=== PATIENT | female | born 1960 | race Caucasian/White ===

== ENCOUNTER 2018-01-05 15:52 | Emergency (ER) | payer BC ==
[2018-01-05 16:00] VITALS: BMI 29.0
[2018-01-05 16:04] VITALS: RESP 18; TEMP 98.1
[2018-01-05] MEDS ORDERED: Aspirin 325 mg EC Tablets PO STA (16:26)
--- NOTE | 2018-01-05 16:46 | RAD ---
Date of service: 01/05/2018 PROCEDURE: CHEST RADIOGRAPH, 1 VIEW HISTORY: chest pain COMPARISON: 12/21/2013 FINDINGS: LUNGS: Clear. PLEURA: No pneumothorax or pleural fluid seen. CARDIOVASCULAR: Normal. OSSEOUS STRUCTURES: No significant abnormalities. VISUALIZED UPPER ABDOMEN: Normal. OTHER FINDINGS: None. IMPRESSION: No active disease.
[2018-01-05] MEDS ORDERED: Aspirin 325 mg EC Tablets PO ONE (16:52)
[2018-01-05 16:55] LABS: BASO # 0.1 K/uL (0.0-0.2); BASO % 0.8 % (0.0-2.0); EOS # 0.1 K/uL (0.0-0.7); EOS % 1.7 % (0.0-4.0); HEMOGLOBIN 13.3 g/dL (11.0-16.0); LYMPH # 2.7 K/uL (1.0-4.3); MEAN CELL VOLUME 87.5 fL (81.0-99.0); MEAN CORPUSCULAR HEMOGLOBIN 30.5 pg (27.0-31.0); MEAN CORPUSCULAR HGB CONC 34.8 g/dL (33.0-37.0); MEAN PLATELET VOLUME 8.1 fL (7.2-11.7); MONO # 0.4 K/uL (0.0-0.8); MONO % 5.6 % (0.0-10.0); NEUT # 4.5 K/uL (1.8-7.0); NEUT % 57.9 % (50.0-75.0); NRBC % 0.1 % (0.0-2.0); RBC 4.36 Mil/uL (3.80-5.20); RED CELL DISTRIBUTION WIDTH 13.2 % (11.5-14.5); WHITE BLOOD COUNT 7.8 K/uL (4.8-10.8)
[2018-01-05 17:21] LABS: B-TYPE NATRIURETIC PEPTIDE 25.9 pg/mL (0-900)
[2018-01-05 17:28] LABS: ALBUMIN 4.6 g/dL (3.5-5.0); BLOOD UREA NITROGEN 14 mg/dL (7-17); CALCIUM 9.5 mg/dl (8.6-10.4); GFR AFRICAN-AMERICAN > 60; GFR NON-AFRICAN AMERICAN > 60
[2018-01-05 17:29] LABS: ALB/GLOB RATIO 1.4 (1.0-2.1); ALT/SGPT 35 U/L (9-52); AST/SGOT 20 U/L (14-36)
--- NOTE | 2018-01-05 18:17 | C.PDOC ---
History Of Present Illness 57yo female, comes to ER with complaint of a sharp substernal chest pain, intermittently present for the past 2-3 days. Patient states she has a history of anxiety and GERD. She currently denies any pain, shortness of breath, fever, or cough. Time Seen by Provider: 01/05/18 16:20 Chief Complaint (Nursing): Chest Pain History Per: Patient History/Exam Limitations: no limitations Onset/Duration Of Symptoms: Persistent Current Symptoms Are (Timing): Gone Quality: "Pain" Associated Symptoms: denies: Nausea, Dyspnea, Syncope Past Medical History Reviewed: Historical Data, Nursing Documentation, Vital Signs Vital Signs: Last Vital Signs Temp 98.1 F 01/05/18 16:00 Pulse 77 01/05/18 18:22 Resp 18 01/05/18 18:22 BP 140/60 01/05/18 18:22 Pulse Ox 100 01/05/18 18:22 - Medical History PMH: Anxiety, Diabetes Surgical History: No Surg Hx Family History: States: No Known Family Hx - Social History Hx Tobacco Use: No Hx Alcohol Use: Yes Hx Substance Use: No - Immunization History Hx Tetanus Toxoid Vaccination: No Hx Influenza Vaccination: No Hx Pneumococcal Vaccination: No Review Of Systems Except As Marked, All Systems Reviewed And Found Negative. Constitutional: Negative for: Fever, Chills Cardiovascular: Positive for: Chest Pain (none right now) Respiratory: Negative for: Cough, Shortness of Breath Physical Exam - Physical Exam Appears: Non-toxic, No Acute Distress Skin: Normal Color, Warm, Dry Head: Atraumatic, Normacephalic Eye(s): bilateral: Normal Inspection Neck: Normal ROM, Supple Chest: Symmetrical, No Deformity, No Tenderness Cardiovascular: Rhythm Regular Respiratory: Normal Breath Sounds Gastrointestinal/Abdominal: Soft, No Tenderness Back: Normal Inspection Extremity: Normal ROM, No Pedal Edema Neurological/Psych: Oriented x3 ED Course And Treatment - Laboratory Results Result Diagrams: 01/05/18 16:51 01/05/18 16:51 ECG: Interpreted By Me, Viewed By Me ECG Rhythm: Sinus Tachycardia Rate From EC O2 Sat by Pulse Oximetry: 98 (RA) Pulse Ox Interpretation: Normal Medical Decision Making Medical Decision Making: Plan: -- Labs -- EKG -- CXR -- Aspirin 325mg PO 1800 Labs reviewed and are within normal limits. CXR with no acute findings. Patient stable for discharge home; instructed to follow up with PMD in 2-3 days. Disposition - Disposition Referrals: Braden Donato, [Non-Staff] - Disposition: HOME/ ROUTINE Disposition Time: 17:45 Condition: GOOD Additional Instructions: JONI ALMONTE, thank you for letting us take care of you today. The emergency medical care you received today was directed at your acute symptoms. If you were prescribed any medication, please fill it and take as directed. It may take several days for your symptoms to resolve. Return to the Emergency Department if your symptoms worsen, do not improve, or if you have any other problems. Please contact your doctor or call one of the physicians/clinics you have been referred to that are listed on the Patient Visit Information form that is included in your discharge packet. Bring any paperwork you were given at discharge with you along with any medications you are taking to your follow up visit. Our treatment cannot replace ongoing medical care by a primary care provider outside of the emergency department. Thank you for allowing the [email or web address] team to be part of your care today. Follow up with your primary care doctor in 2-3 days for re-evaluation and further management. Instructions: Chest Pain That Is Not Caused by the Heart (DC) Forms: dVisit (Malay) - Clinical Impression Clinical Impression: Non-cardiac chest pain - Scribe Statement The provider has reviewed the documentation as recorded by the Doretha Ornelas Provider Attestation: All medical record entries made by the Doretha were at my direction and personally dictated by me. I have reviewed the chart and agree that the record accurately reflects my personal performance of the history, physical exam, medical decision making, and the department course for this patient. I have also personally directed, reviewed, and agree with the discharge instructions and disposition.
[2018-01-05 18:24] VITALS: BP 140/60; PULSE 77
[2018-01-06 00:43] VITALS: O2SAT 98
== END 2018-01-05 18:22 | disposition home or self-care (01) ==
LOC: C.ER 15:52
DX: R07.89 Other chest pain (principal); E11.9 Type 2 diabetes mellitus without complications

== ENCOUNTER 2018-06-22 10:05 | Emergency (ER) | payer BC ==
[2018-06-22 10:05] VITALS: BMI 29.0
[2018-06-22 10:12] VITALS: RESP 18
[2018-06-22] MEDS ORDERED: Sodium Chloride 0.9% 1,000 ML IV STA (10:34)
[2018-06-22] MEDS ORDERED: Sodium Chloride 0.9% 1,000 ML ONE (11:02)
[2018-06-22 11:03] LABS: BASO % 0.8 % (0.0-2.0); EOS # 0.1 K/uL (0.0-0.7); EOS % 1.3 % (0.0-4.0); HEMOGLOBIN 12.3 g/dL (11.0-16.0); LYMPH # 1.3 K/uL (1.0-4.3); LYMPH % 23.1 % (20.0-40.0); MEAN CORPUSCULAR HEMOGLOBIN 29.6 pg (27.0-31.0); MEAN CORPUSCULAR HGB CONC 32.8 g/dL (33.0-37.0); MEAN PLATELET VOLUME 8.5 fL (7.2-11.7); MONO # 0.3 K/uL (0.0-0.8); MONO % 4.8 % (0.0-10.0); RBC 4.17 Mil/uL (3.80-5.20); RED CELL DISTRIBUTION WIDTH 12.9 % (11.5-14.5); WHITE BLOOD COUNT 5.7 K/uL (4.8-10.8)
[2018-06-22 11:06] LABS: MEAN CELL VOLUME 90.4 fL (81.0-99.0)
[2018-06-22 11:10] LABS: PROTHROMBIN TIME 10.6 SECONDS (9.7-12.2)
[2018-06-22 11:11] LABS: URINE BILIRUBIN NEGATIVE (NEGATIVE); URINE BLOOD NEGATIVE (NEGATIVE); URINE CLARITY Clear (Clear); URINE COLOR Straw (YELLOW); URINE GLUCOSE (UA) NORMAL (Normal); URINE LEUKOCYTE ESTERASE NEG Leu/uL (Negative); URINE PROTEIN NEGATIVE (NEGATIVE); URINE UROBILINOGEN NORMAL mg/dL (0.2-1.0)
[2018-06-22 11:16] LABS: ALB/GLOB RATIO 1.4 (1.0-2.1); ALBUMIN 4.4 g/dL (3.5-5.0); ALT/SGPT 34 U/L (9-52); AMYLASE 124 U/L (30-110); AST/SGOT 28 U/L (14-36); BLOOD UREA NITROGEN 14 mg/dL (7-17); CALCIUM 8.8 mg/dl (8.6-10.4); GFR NON-AFRICAN AMERICAN > 60; LIPASE 260 U/L (23-300)
--- NOTE | 2018-06-22 11:34 | RAD ---
Date of service: 06/22/2018 HISTORY: SOB, abd pain COMPARISON: Portable chest 01/05/2018. TECHNIQUE: Chest PA and lateral FINDINGS: LUNGS: No active pulmonary disease. PLEURA: No significant pleural effusion identified. No pneumothorax apparent. CARDIOVASCULAR: No aortic atherosclerotic calcification present. Normal cardiac size. No pulmonary vascular congestion. OSSEOUS STRUCTURES: No significant abnormalities. VISUALIZED UPPER ABDOMEN: Normal. OTHER FINDINGS: None. IMPRESSION: No interval acute cardiopulmonary disease appreciated.
--- NOTE | 2018-06-22 11:47 | C.PDOC ---
History Of Present Illness 58 y/o female presents to the ED for evaluation of abdominal pain that began this morning. Patient states she was going to work when she suddenly felt out of oxygen. While at work, patient developed cramping to the lower abdomen as sociated with non-bloody diarrhea. No vomiting. She denies any sharp pain or SOB at present time. Patient has no prior hx of COPD or asthma. Time Seen by Provider: 06/22/18 10:19 Chief Complaint (Nursing): Abdominal Pain History Per: Patient History/Exam Limitations: no limitations Onset/Duration Of Symptoms: Hrs Current Symptoms Are (Timing): Still Present Past Medical History Reviewed: Historical Data, Nursing Documentation, Vital Signs Vital Signs: Last Vital Signs Temp 98.1 F 06/22/18 10:08 Pulse 90 06/22/18 10:08 Resp 18 06/22/18 10:08 BP 143/90 06/22/18 10:08 Pulse Ox 98 06/22/18 10:08 - Medical History PMH: Anxiety, Diabetes Family History: States: Unknown Family Hx - Social History Hx Tobacco Use: No Hx Alcohol Use: No Hx Substance Use: No - Immunization History Hx Tetanus Toxoid Vaccination: No Hx Influenza Vaccination: No Hx Pneumococcal Vaccination: No Review Of Systems Except As Marked, All Systems Reviewed And Found Negative. Constitutional: Negative for: Fever, Chills Eyes: Negative for: Vision Change Cardiovascular: Negative for: Chest Pain, Light Headedness Respiratory: Negative for: Shortness of Breath Gastrointestinal: Positive for: Abdominal Pain, Diarrhea. Negative for: Vomiting, Melena, Hematochezia Genitourinary: Negative for: Dysuria, Frequency Neurological: Negative for: Weakness, Dizziness Physical Exam - Physical Exam Appears: Non-toxic, No Acute Distress Skin: Warm, Dry Head: Atraumatic, Normacephalic Eye(s): bilateral: Normal Inspection, PERRL, EOMI Neck: Normal ROM Chest: Symmetrical Cardiovascular: Rhythm Regular, No Murmur Respiratory: Normal Breath Sounds, No Accessory Muscle Use Gastrointestinal/Abdominal: Soft, Tenderness (suprapubic), No Guarding, No R ebound Back: Normal Inspection Extremity: Bilateral: Atraumatic, Normal Color And Temperature Pulses: Left Dorsalis Pedis: Normal, Right Dorsalis Pedis: Normal Neurological/Psych: Oriented x3 ED Course And Treatment - Laboratory Results Result Diagrams: 06/22/18 10:55 06/22/18 10:55 Lab Results: PT 10.6 SECONDS (9.7-12.2) 06/22/18 10:55 INR 1.0 06/22/18 10:55 APTT 29 SECONDS (21-34) 06/22/18 10:55 Troponin I < 0.0120 ng/mL (0.00-0.120) 06/22/18 10:55 Total Bilirubin 0.5 mg/dL (0.2-1.3) 06/22/18 10:55 AST 28 U/L (14-36) 06/22/18 10:55 ALT 34 U/L (9-52) 06/22/18 10:55 Alkaline Phosphatase 107 U/L (38-126) 06/22/18 10:55 Total Protein 7.5 g/dL (6.3-8.3) 06/22/18 10:55 Albumin 4.4 g/dL (3.5-5.0) 06/22/18 10:55 Globulin 3.1 gm/dL (2.2-3.9) 06/22/18 10:55 Albumin/Globulin Ratio 1.4 (1.0-2.1) 06/22/18 10:55 Amylase 124 U/L (30-110) H 06/22/18 10:55 Lipase 260 U/L (23-300) 06/22/18 10:55 Urine Color Straw (YELLOW) 06/22/18 10:55 Urine Clarity Clear (Clear) 06/22/18 10:55 Urine pH 6.0 (5.0-8.0) 06/22/18 10:55 Ur Specific Valentine 1.005 (1.003-1.030) 06/22/18 10:55 Urine Protein Negative mg/dL (NEGATIVE) 06/22/18 10:55 Urine Glucose (UA) Normal mg/dL (Normal) 06/22/18 10:55 Urine Ketones Negative mg/dL (NEGATIVE) 06/22/18 10:55 Urine Blood Negative (NEGATIVE) 06/22/18 10:55 Urine Nitrate Negative (NEGATIVE) 06/22/18 10:55 Urine Bilirubin Negative (NEGATIVE) 06/22/18 10:55 Urine Urobilinogen Normal mg/dL (0.2-1.0) 06/22/18 10:55 Ur Leukocyte Esterase Neg Rica/uL (Negative) 06/22/18 10:55 O2 Sat by Pulse Oximetry: 98 (RA) Pulse Ox Interpretation: Normal - Other Rad CXR X-Ray: Viewed By Me, Read By Radiologist Interpretation: Accession No. : [id number]. Patient Name / ID : SUZY QUINONES / [id number]. Exam Date : 06/22/2018 10:39:28 ( Approved ). Study Co mment : Sex / Age : F / 58Y. Creator : Rob Sylvester MD. Dictator : Rob Sylvester MD. Wild Life Manager : Medical Lab Tech Instructor : Rob Sylvester MD. Approver2 : Report Date : 06/22/2018 11:30:38. My Comment : . Date of service: 06/22/2018. HISTORY: SOB, abd pain. COMPARISON: Portable chest 01/05/2018. TECHNIQUE: Chest PA and lateral. FINDINGS: LUNGS: No active pulmonary disease. PLEURA: No significant pleural effusion identified. No pneumothorax apparent. CARDIOVASCULAR: No aortic athe rosclerotic calcification present. Normal cardiac size. No pulmonary vascular congestion. OSSEOUS STRUCTURES: No significant abnormalities. VISUALIZED UPPER ABDOMEN: Normal. OTHER FINDINGS: None. IMPRESSION: No interval acute cardiopulmonary disease appreciated. - CT Scan/US Abdomen/pelvis Other Rad Studies (CT/US): Read By Radiologist, Radiology Report Reviewed CT/US Interpretation: Accession No. : [id number]. Patient Name / ID : SUZY QUINONES / [id number]. Exam Date : 06/22/2018 15:52:50 ( Approved ). Study Comment : Sex / Age : F / 58Y. Creator : Dulce Valdivia. Dictator : Joselito Zelaya MD. Wild Life Manager : Medical Lab Tech Instructor : Joselito Zelaya MD. Approver2 : Report Date : 06/22/2018 16:53:20. My Comment : . Date of service: 06/22/2018. PROCEDURE: CT Abdomen and Pelvis with contrast. HISTORY: Unspecified, generalized abdominal pain. COMPARISON: None. TECHNIQUE: Intravenous contrast dose: 100 cc Visipaque 320. Radiation dose: Total exam DLP = 953.86 mGy-cm. This CT exam was performed using one or more of the following dose reduction techniques: Automated exposure control, adjustment of the mA and/or kV according to patient size, and/or use of iterative reconstruction technique. FINDINGS: LOWER THORAX: Unremarkable. LIVER: Hepatic steatosis. No focal masses. No intrahepatic bile duct dilatation or perihepatic ascites. GALLBLADDER AND BILE DUCTS: Unremarkable. PANCREAS: Unremarkable. No gross lesion or ductal dilatation. SPLEEN: Unremarkable. ADRENALS: Unremarkable. No mass. KIDNEYS AND URETERS: Areas of cortical thinning bilaterally the overall appearance and geographic distribution suggest areas of scarring perhaps related to pyelonephritis.. No hydr onephrosis. No solid mass. VASCULATURE: Atherosclerotic calcification and mural plaque present. Findings are seen throughout the aorta. BOWEL: Edematous changes within the proximal small bowel consistent with jejunitis. Thickening of the wall of the distal descending colon and sigmoid without an acute inflammatory component. APPENDIX: A normal appendix is visualized in it's entirety. PERITONEUM: Unremarkable. No free fluid. No free air. LYMPH NODES: Unremarkable. No enlarged lymph nodes. BLADDER: Unremarkable. REPRODUCTIVE: Anteverted uterus containing at least 1 dominant fibroid. BONES: No acute fracture. OTHER FINDINGS: None. IMPRESSION: Findings consistent with enteritis/jejunitis. No mechanical obstructing lesions. Additional benign and/or incidental findings described above Progress Note: Blood work and urine sent to the lab. EKG and CXR ordered and reviewed. NS IV fluids x 1 bolus administered. On re-evaluation patient feels better, no vomiting/diarrhea in ED. 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 Disposition - Disposition Disposition: HOME/ ROUTINE Disposition Time: 17:22 Condition: STABLE Additional Instructions: Follow up with PMD and Gastroenerologist within 2-3 days. Return to ED if feel worse. Prescriptions: Dicyclomine [Bentyl] 20 mg PO TID #30 tab Ciprofloxacin [Cipro] 1 tab PO BID #14 tab metroNIDAZOLE [Flagyl] 500 mg PO Q8 #21 tab Instructions: Acute Abdomen (Belly Pain) Forms: SnapTell (Yakut) - Clinical Impression Clinical Impression: Gastroenteritis - PA / LEASING AGENT / Resident Statement MD/DO has reviewed & agrees with the documentation as recorded. - Scribe Statement The provider has reviewed the documentation as recorded by the Doretha Graham All medical record entries made by the Doretha were at my direction and personally dictated by me. I have reviewed the chart and agree that the record accurately reflects my personal performance of the history, physical exam, medical decision making, and the department course for this patient. I have also personally directed, reviewed, and agree with the discharge instructions and disposition.
[2018-06-22] MEDS ORDERED: Morphine 4 MG/ML VIAL ONE (12:01)
[2018-06-22] MEDS ORDERED: Iohexol 240 (50 ml) PO STA (13:13)
[2018-06-22] MEDS ORDERED: Iohexol 240 (50 ml) ONE (13:26)
[2018-06-22] MEDS ORDERED: Iodixanol 320 MG/ML 100 ML BOTTLE IV ONE (15:11)
--- NOTE | 2018-06-22 17:14 | CT ---
Date of service: 06/22/2018 PROCEDURE: CT Abdomen and Pelvis with contrast HISTORY: Unspecified, generalized abdominal pain. COMPARISON: None. TECHNIQUE: Intravenous contrast dose: 100 cc Visipaque 320. Radiation dose: Total exam DLP = 953.86 mGy-cm. This CT exam was performed using one or more of the following dose reduction techniques: Automated exposure control, adjustment of the mA and/or kV according to patient size, and/or use of iterative reconstruction technique. FINDINGS: LOWER THORAX: Unremarkable. LIVER: Hepatic steatosis. No focal masses. No intrahepatic bile duct dilatation or perihepatic ascites. GALLBLADDER AND BILE DUCTS: Unremarkable. PANCREAS: Unremarkable. No gross lesion or ductal dilatation. SPLEEN: Unremarkable. ADRENALS: Unremarkable. No mass. KIDNEYS AND URETERS: Areas of cortical thinning bilaterally the overall appearance and geographic distribution suggest areas of scarring perhaps related to pyelonephritis.. No hydronephrosis. No solid mass. VASCULATURE: Atherosclerotic calcification and mural plaque present. Findings are seen throughout the aorta BOWEL: Edematous changes within the proximal small bowel consistent with jejunitis. Thickening of the wall of the distal descending colon and sigmoid without an acute inflammatory component. APPENDIX: A normal appendix is visualized in it's entirety. PERITONEUM: Unremarkable. No free fluid. No free air. LYMPH NODES: Unremarkable. No enlarged lymph nodes. BLADDER: Unremarkable. REPRODUCTIVE: Anteverted uterus containing at least 1 dominant fibroid. BONES: No acute fracture. OTHER FINDINGS: None. IMPRESSION: Findings consistent with enteritis/jejunitis. No mechanical obstructing lesions. Additional benign and/or incidental findings described above.
[2018-06-22 17:20] VITALS: O2SAT 98
[2018-06-22 17:29] VITALS: BP 127/88; PULSE 86; TEMP 98.6
--- NOTE | 2018-06-25 12:06 | CARD ---
APPROVED REPORT Date of service: 06/22/2018 EKG Measurement Heart [id number] <Conclusion> Normal sinus rhythm Low voltage QRS Borderline ECG
== END 2018-06-22 17:43 | disposition home or self-care (01) ==
LOC: C.ER 10:05
DX: K52.9 Noninfective gastroenteritis and colitis, unspecified (principal); E11.9 Type 2 diabetes mellitus without complications; F41.9 Anxiety disorder, unspecified
CPT/HCPCS: 71046; 74177; 80053; 81001; 82150; 82550; 82553; 83690; 84484; 85025; 85610; 85730; 93005; 96361; 96374; 96375; 99284; J1885; J2270; J7030; Q9966; Q9967